=== PATIENT | male | born 1980 | race Caucasian/White ===

== ENCOUNTER 2018-03-28 14:18 | Emergency (ER) | payer BC ==
[~2018-03-28] VITALS: Ht 175.3 cm; Wt 87.5 kg
[2018-03-28 14:21] VITALS: Ht 175.3 cm; Wt 87.5 kg
[2018-03-28 14:56] LABS: BASOPHIL % 0.3 % (0-2); PLATELET COUNT 206 x10^3mcL (130-400); RED CELL DISTRIBUTION WIDTH 12.8 % (11.5-14.5)
[2018-03-28 15:22] LABS: CALCIUM 8.9 mg/dL (8.5-10.1); CARBON DIOXIDE 29.3 mmol/L (21-32); CHLORIDE SERUM 101 mmol/L (98-107); CREATININE SERUM 0.8 mg/dL (0.7-1.3); GFR1 > 60 mL/min; GLUCOSE SERUM 89 mg/dL (74-106); POTASSIUM SERUM 3.7 mmol/L (3.5-5.1); SODIUM SERUM 140 mmol/L (136-145)
[2018-03-28 15:51] LABS: ALBUMIN 4.2 g/dL (3.4-5.0); ALKALINE PHOSPHATASE 88 U/L (46-116); ALT/SGPT 30 U/L (16-63); AST/SGOT 12 U/L (15-37); BILIRUBIN TOTAL 1.2 mg/dL (0.20-1.00); T4(THYROXINE) 9.8 ug/dL (4.7-13.3)
[2018-03-28 16:58] VITALS: BP 102/69
== END 2018-03-28 16:59 | disposition home or self-care (01) ==
LOC: ED 14:18
PROVIDERS: Emergency Medicine
DX: F15.980 Other stimulant use, unspecified with stimulant-induced anxiety disorder (principal); Z88.0 Allergy status to penicillin
CPT/HCPCS: J2405; J7030